=== PATIENT | female | born 1940 | race Caucasian/White ===

== ENCOUNTER 2021-03-05 00:45 | Emergency (ER) | payer MEDICARE, BC ==
[2021-03-05] MEDS ORDERED: Bupivacaine 0.5% 10 ML SDV INJECT ONE (01:14)
[2021-03-05] MEDS ORDERED: Diphtheria,Pertussis(Acell),Tetanus Vaccine 0.5 ML Syringe IM ONE ×2 (01:14→02:11)
[2021-03-05] MEDS ORDERED: Lidocaine 1% with EPINEPHrine 1:100,000 20 ML MDV INJECT ONE (01:14)
--- NOTE | 2021-03-05 01:19 | EDM.PDOC ---
ED HPI GENERAL MEDICAL PROBLEM - General Chief Complaint: Laceration Stated Complaint: FALL/ RT HAND LAC Time Seen by Provider: 03/05/21 01:06 Source of Information: Reports: Patient, Family (Sister) History Limitations: Reports: No Limitations - History of Present Illness INITIAL COMMENTS - FREE TEXT/NARRATIVE: Ms. Chaudhry is a very pleasant 80-year-old woman who is now brought to the ED by her sister, after suffering a laceration to the dorsal aspect of her right thumb. She states that she was chasing a cat outside, and likely tripped on some steps on her deck, around 2100 last night, 03/04/2021. She denies any other injuries. The patient does not recall when her last tetanus vaccination was. At triage, the patient's initial BP was found to be mildly elevated at 155/99, otherwise, she was hemodynamically stable, afebrile, saturating 96% on room air. Appears to be comfortable, in no acute distress. Prior to last night's fall, the patient denies having a recent fever, chills, sore throat, ear pain, nasal or sinus congestion, cough, dyspnea, chest pain, palpitations, nausea, vomiting, constipation, diarrhea, abdominal pain, urinary symptoms, recent weight gain or weight loss, recent bloody bowel movements or black bowel movements, recent joint aches, headaches, or rashes. I reviewed the PMHx/PSHx/SocHx, which was reviewed with the patient by the RN. The patient does not have a dedicated PCP. She has not received a COVID vaccination, nor an influenza vaccination this season. - Related Data Allergies Allergy/AdvReac Type Severity Reaction Status Date / Time No Known Allergies Allergy Verified 03/05/21 01:02 Home Meds: Home Meds . [No Known Home Meds] 03/05/21 [History] Social & Family History - Tobacco Use Tobacco Use Status *Q: Never Tobacco User - Caffeine Use Caffeine Use: Reports: Coffee - Recreational Drug Use Recreational Drug Use: No ED ROS GENERAL - Review of Systems Review Of Systems: Comprehensive ROS is negative, except as noted in HPI. ED EXAM, SKIN/RASH Exam: See Below Exam Limited By: No Limitations General Appearance: Alert, WD/WN, No Apparent Distress Extremities: Other (There is a stellate laceration to the dorsal aspect of the right thumb, over the first metacarpal. Underlying connective tissue is exposed. The wound is not currently bleeding. No tendon injury. Neurovascular status of the right thumb is intact.) ED SKIN PROCEDURES - Laceration/Wound Repair Right Hand Appearance: Subcutaneous, Stellate, Clean Distal NVT: Neuro & Vascular Intact, No Tendon Injury Anesthetic Type: Local Local Anesthesia - Lidocaine (Xylocaine): 1% with EPI (50:50 mixture) Local Anesthesia - Bupivicaine (Marcaine): 0.5% Plain (50:50 mixture) Local Anesthetic Volume: 2cc Skin Prep: Providone-Iodine (Betadine) Exploration/Debridement/Repair: Wound Explored, In a Bloodless Field, Explored to Base, No Foreign Material Found Closed with: Sutures Lac/Wound length In cm: 5 Suture Size: 3-0 # of Sutures: 10 Suture Type: Nylon (Ethilon), Interrupted, Simple Drain Placement: No Sterile Dressing Applied: Nurse Tetanus Status Addressed: Yes Complications: No Course - Vital Signs Last Recorded V/S: Last Vital Signs Temp 35.8 C L 03/05/21 00:54 Pulse 70 03/05/21 00:54 Resp 20 03/05/21 00:54 BP 155/99 H 03/05/21 00:54 Pulse Ox 96 03/05/21 00:54 - Orders/Labs/Meds Orders: Active Orders 24 hr Category Date Time Status Vaccine to be Administered/Admin Charge [RC] ASDIRECTED Care 03/05/21 01:14 Active Vaccine to be Administered/Admin Charge [RC] ASDIRECTED Care 03/05/21 02:11 Active Diphth,Pertuss(Acell),Tet Vac [Boostrix] Med 03/05/21 02:11 Once 0.5 ml IM .ONCE ONE FLU Vacc [id number](65UP)/MF59C/PF [Fluad Quad 3378-3879 Med 03/05/21 10:00 Once SYRINGE] 60 mcg IM .ONCE ONE Medication Orders Diphtheria/Tetanus/Acell Pertussis (Diphtheria,Pertussis(Acell),Tetanus Vaccine 0.5 Ml Syringe) 0.5 ml IM .ONCE ONE Stop: 03/05/21 02:12 Influenza Virus Vaccine (Flu Vacc We2386(65up)/Mf59c/Pf 60 Mcg/0.5 Ml Syringe) 60 mcg IM .ONCE ONE Stop: 03/05/21 10:01 Meds: Medications Generic Name Dose Route Start Last Admin Trade Name Freq PRN Reason Stop Dose Admin Diphtheria/Tetanus/Acell Pertussis 0.5 ml 03/05/21 02:11 Diphtheria,Pertussis(Acell),Tetanus Vaccine 0.5 Ml Syringe IM 03/05/21 02:12 .ONCE ONE Influenza Virus Vaccine 60 mcg 03/05/21 10:00 Flu Vacc [id number](65up)/Mf59c/Pf 60 Mcg/0.5 Ml Syringe IM 03/05/21 10:01 .ONCE ONE Discontinued Medications Generic Name Dose Route Start Last Admin Trade Name Freq PRN Reason Stop Dose Admin Bupivacaine HCl 10 ml 03/05/21 01:14 Bupivacaine 0.5% 10 Ml Sdv INJECT 03/05/21 01:15 ONETIME ONE Diphtheria/Tetanus/Acell Pertussis 0.5 ml 03/05/21 01:14 03/05/21 02:11 Diphtheria,Pertussis(Acell),Tetanus Vaccine 0.5 Ml Syringe IM 03/05/21 01:15 Not Given .ONCE ONE Influenza Virus Vaccine 1 each 03/05/21 01:14 Pharmacy To Dose - Influenza Vaccine IM 03/05/21 01:15 ONETIME ONE Lidocaine/Epinephrine 20 ml 03/05/21 01:14 Lidocaine 1% With Epinephrine 1:100,000 20 Ml Mdv INJECT 03/05/21 01:15 ONETIME ONE - Re-Assessments/Exams Free Text/Narrative Re-Assessment/Exam: 03/05/21 01:15 The stellate laceration to the dorsal aspect of the patient's right thumb will need to be sutured. I have ordered some bupivacaine and lidocaine with epinephrine. Additionally, the patient has agreed to receive both a tetanus vaccination and an influenza vaccination. 03/05/21 02:05 After the wound was cleaned, I anesthetized it with a 50:50 mixture of bupivacaine 0.5% without epinephrine and lidocaine 1% with epinephrine. The wound was then closed with 10 simple interrupted sutures using 3-0 Ethilon. The patient tolerated the procedure well. Because the patient has very thin skin, I am recommending 10 days before the sutures are removed, on 03/15/2021. Departure - Departure Time of Disposition: 02:06 Disposition: Home, Self-Care 01 Condition: Good Clinical Impression: Laceration of right hand - Discharge Information *PRESCRIPTION DRUG MONITORING PROGRAM REVIEWED*: Not Applicable *COPY OF PRESCRIPTION DRUG MONITORING REPORT IN PATIENT KAYKAY: Not Applicable Instructions: Laceration Care, Adult Referrals: PCP,Not In Area [Primary Care Provider] - Forms: ED Department Discharge Additional Instructions: You were seen in the emergency room after falling and cutting the back of your right thumb. Your wound was closed with 10 sutures in the ER. Keep the wound clean with ordinary soap and water when you bathe. Pat dry, then apply a sterile bandage, daily. You may take [id number] acetaminophen or ibuprofen as needed for discomfort. The sutures should be ready for removal by 03/15/2021. They can be removed at the walk-in clinic, by a nurse at your doctor's office, or in the ER. It is highly unlikely that the wound will become infected, but if there are any concerns, such as significant swelling or redness, drainage, or inordinate pain, please do not hesitate to return to the ER for reevaluation. You received both a tetanus vaccination and influenza vaccination in the ER. Sepsis Event Note (ED) - Evaluation Sepsis Screening Result: No Definite Risk - Focused Exam Vital Signs: Vital Signs Temp Pulse Resp BP Pulse Ox 03/05/21 00:54 35.8 C L 70 20 155/99 H 96 - My Orders Last 24 Hours: My Active Orders 03/05/21 01:14 Vaccine to be Administered/Admin Charge [RC] ASDIRECTED 03/05/21 02:11 Vaccine to be Administered/Admin Charge [RC] ASDIRECTED Diphth,Pertuss(Acell),Tet Vac [Boostrix] 0.5 ml IM .ONCE ONE 03/05/21 10:00 FLU Vacc [id number](65UP)/MF59C/PF [Fluad Quad 3083-7560 SYRINGE] 60 mcg IM .ONCE ONE - Assessment/Plan Last 24 Hours: My Active Orders 03/05/21 01:14 Vaccine to be Administered/Admin Charge [RC] ASDIRECTED 03/05/21 02:11 Vaccine to be Administered/Admin Charge [RC] ASDIRECTED Diphth,Pertuss(Acell),Tet Vac [Boostrix] 0.5 ml IM .ONCE ONE 03/05/21 10:00 FLU Vacc [id number](65UP)/MF59C/PF [Fluad Quad SYRINGE] 60 mcg IM .ONCE ONE
[2021-03-05] MEDS ORDERED: FLU Vacc QS2021(65UP)/MF59C/PF 60 MCG/0.5 ML Syringe IM ONE (10:00)
== END 2021-03-05 02:34 | disposition home or self-care (01) ==
LOC: JD.ED 00:45
DX: S61.411A Laceration without foreign body of right hand, initial encounter (principal); Z23 Encounter for immunization; W01.0XXA Fall on same level from slipping, tripping and stumbling without subsequent striking against object, initial encounter
CPT/HCPCS: 12002; 90471; 90715; 99282; G0008; J3490; 12013; 99283

== ENCOUNTER 2021-03-18 16:24 | Emergency (ER) | payer MEDICARE, BC ==
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
--- NOTE | 2021-03-18 18:08 | CR ---
Chest: Portable view of the chest was obtained. Comparison: No prior chest imaging is available. Heart size and mediastinum are normal. Lungs show minimal atelectasis behind the left heart. Lungs otherwise are clear. Bony structures show nothing acute. Impression: 1. Slight left basilar atelectasis. 2. Nothing acute is otherwise seen on portable chest x-ray. Diagnostic code #2
== END 2021-03-18 18:44 | disposition home or self-care (01) ==
LOC: JD.ED 16:24
DX: T23.232A Burn of second degree of multiple left fingers (nail), not including thumb, initial encounter (principal); T23.231A Burn of second degree of multiple right fingers (nail), not including thumb, initial encounter; T20.16XA Burn of first degree of forehead and cheek, initial encounter; I10 Essential (primary) hypertension; X15.0XXA Contact with hot stove (kitchen), initial encounter
CPT/HCPCS: 16020; 36600; 71045; 71045-26; 82375; 82803; 99284-25

== ENCOUNTER 2023-01-29 09:27 | Emergency (ER) | payer MEDICARE, BC | END 2023-01-29 12:24 | disposition home or self-care (01) | LOC: JD.ED 09:27 | DX: M25.551 Pain in right hip (principal); I10 Essential (primary) hypertension | CPT/HCPCS: 73502-26-RT; 73502-RT; 99283; 99284 ==

== ENCOUNTER 2023-08-14 08:21 | Emergency (ER) | payer MEDICARE, BC ==
[2023-08-14 09:10] LABS: BASOPHILS ABSOLUTE AUTO 0.1 K/mm3 (0.0-0.2); BASOPHILS PERCENT AUTO 1.1 % (0.0-1.0); EOSINOPHILS ABSOLUTE AUTO 0.1 K/mm3 (0.0-0.4); EOSINOPHILS PERCENT AUTO 1.3 % (0.0-6.0); HEMATOCRIT 40.5 % (37.0-47.0); IMMATURE GRAN ABSOLUTE AUTO 0.04 K/mm3 (0.00-0.05); IMMATURE GRAN PERCENT AUTO 0.8 % (0.0-0.4); LYMPHOCYTES ABSOLUTE AUTO 1.4 K/mm3 (1.0-4.8); LYMPHOCYTES PERCENT AUTO 25.6 % (24.0-44.0); MEAN CORPUSCULAR HEMOGLOBIN 29.3 pg (28.0-32.0); MEAN CORPUSCULAR HGB CONC 32.1 g/dl (32.0-36.0); MEAN CORPUSCULAR VOLUME 91.4 fl (83.0-99.0); MEAN PLATELET VOLUME 9.5 fl (9.4-12.3); MONOCYTES ABSOLUTE AUTO 0.3 K/mm3 (0.0-0.8); MONOCYTES PERCENT AUTO 6.3 % (0.0-8.0); NEUTROPHILS ABSOLUTE AUTO 3.4 K/mm3 (1.8-7.7); NEUTROPHILS PERCENT AUTO 64.9 % (41.0-71.0); PLATELET COUNT,PLT 248 K/mm3 (150-400); RED BLOOD CELL COUNT 4.43 M/mm3 (4.10-5.30); WHITE BLOOD CELL COUNT,WBC 5.27 K/mm3 (3.9-11.3)
[2023-08-14 09:30] LABS: A/G RATIO 1.1 (1-2); ALANINE AMINOTRANSFERASE,ALT 45 U/L (14-59); ALBUMIN 3.7 g/dl (3.4-5.0); ALKALINE PHOSPHATASE 67 U/L (46-116); ANION GAP 13.7 (5-15); ASPARTATE AMNIOTRANSFERASE,AST 23 U/L (15-37); BILIRUBIN TOTAL 0.4 mg/dL (0.2-1.0); BLOOD UREA NITROGEN,BUN 13 mg/dL (7-18); BUN/CREATININE RATIO 14.4 (14-18); CALCIUM 8.8 mg/dL (8.5-10.1); CARBON DIOXIDE,CO2 27 mEq/L (21-32); CHLORIDE,CL 103 mEq/L (98-107); CREATININE 0.9 mg/dL (0.55-1.02); ESTIMATED GFR 63 mL/min (>60); GLUCOSE RANDOM 99 mg/dL (70-99); POTASSIUM,K 3.7 mEq/L (3.5-5.1); PROTEIN TOTAL,TP 7.1 g/dl (6.4-8.2); SODIUM,NA 140 mEq/L (136-145)
[2023-08-14] MEDS: traMADol 50 MG Tab PO PRN (23:15)
[2023-08-14] MEDS: QUEtiapine 25 MG Tab PO SCH (23:15)
[2023-08-15] MEDS ORDERED: QUEtiapine 25 MG Tab PO SCH (21:00)
== END 2023-08-15 11:05 | disposition home or self-care (01) ==
LOC: JD.ED 08:21
DX: S42.212A Unspecified displaced fracture of surgical neck of left humerus, initial encounter for closed fracture (principal); I10 Essential (primary) hypertension; Z79.899 Other long term (current) drug therapy; Z86.16 Personal history of COVID-19; W19.XXXA Unspecified fall, initial encounter
CPT/HCPCS: 36415; 70450; 71045; 73030; 73200; 73552; 80053; 85025; 99284; A9270; 99283

== ENCOUNTER 2023-08-15 15:18 | Inpatient (IN) | payer MEDICARE, BC ==
[2023-08-15] MEDS ORDERED: Ondansetron 4 MG Tab.DIS PO PRN (17:11)
[2023-08-15 19:13] LABS: TSH 2.012 uIU/mL (0.358-3.74)
[2023-08-15 19:24] LABS: MAGNESIUM 1.9 mg/dL (1.8-2.4); PHOSPHORUS 3.1 mg/dL (2.6-4.7)
[2023-08-15] MEDS: Zolpidem 5 MG Tab PO PRN (20:58)
[2023-08-15] MEDS: QUEtiapine 25 MG Tab PO SCH (20:58)
[2023-08-15] MEDS: Heparin Sodium 5,000 Units/ML Vial SUBCUT SCH (20:58)
[2023-08-15] MEDS: Ketorolac 30 MG/ML SDV IVPUSH PRN (20:59)
[2023-08-16] MEDS: HYDROmorphone 0.5 MG/0.5 ML Syringe IVPUSH PRN (00:17)
[2023-08-16 00:43] LABS: APPEARANCE,URINE CLEAR (Clear); BILIRUBIN,URINE NEGATIVE (Negative); COLOR,URINE YELLOW (Yellow); GLUCOSE,URINE NEGATIVE (Negative); KETONES,URINE 2+ (Negative); LEUKOCYTE ESTERASE,URINE NEGATIVE (Negative); NITRITE,URINE NEGATIVE (Negative); OCCULT BLOOD,URINE NEGATIVE (Negative); PH,URINE 5.5 (5.0-8.0); PROTEIN,URINE NEGATIVE (Negative); UROBILINOGEN,URINE 0.2 (0.2-1.0)
[2023-08-16 01:04] LABS: BACTERIA,URINE NOT SEEN /hpf (FEW); EPITHELIAL CELLS,URINE 0-5 /hpf (0-5); MUCUS,URINE RARE /hpf (FEW); RBC,URINE NOT SEEN /hpf (0-5); WBC,URINE 0-5 /hpf (0-5)
[2023-08-16] MEDS ORDERED: Potassium Chloride 20 MEQ Tab.ER PO SCH (08:00)
[2023-08-16] MEDS ORDERED: Folic Acid 1 MG Tab PO SCH (08:00)
[2023-08-16] MEDS: Potassium Chloride 20 MEQ Tab.ER PO SCH (08:48)
[2023-08-16] MEDS: Folic Acid 1 MG Tab PO SCH (08:49)
[2023-08-16 09:29] LABS: BASOPHILS ABSOLUTE AUTO 0.1 K/mm3 (0.0-0.2); BASOPHILS PERCENT AUTO 1.2 % (0.0-1.0); EOSINOPHILS ABSOLUTE AUTO 0.1 K/mm3 (0.0-0.4); EOSINOPHILS PERCENT AUTO 2.1 % (0.0-6.0); HEMATOCRIT 33.8 % (37.0-47.0); HEMOGLOBIN 11.2 gm/dl (12.0-16.0); IMMATURE GRAN ABSOLUTE AUTO 0.01 K/mm3 (0.00-0.05); IMMATURE GRAN PERCENT AUTO 0.2 % (0.0-0.4); LYMPHOCYTES PERCENT AUTO 20.8 % (24.0-44.0); MEAN CORPUSCULAR HEMOGLOBIN 29.9 pg (28.0-32.0); MEAN CORPUSCULAR HGB CONC 33.1 g/dl (32.0-36.0); MEAN CORPUSCULAR VOLUME 90.1 fl (83.0-99.0); MEAN PLATELET VOLUME 9.7 fl (9.4-12.3); MONOCYTES ABSOLUTE AUTO 0.4 K/mm3 (0.0-0.8); MONOCYTES PERCENT AUTO 9.1 % (0.0-8.0); NEUTROPHILS ABSOLUTE AUTO 3.2 K/mm3 (1.8-7.7); NEUTROPHILS PERCENT AUTO 66.6 % (41.0-71.0); PLATELET COUNT,PLT 212 K/mm3 (150-400); RED BLOOD CELL COUNT 3.75 M/mm3 (4.10-5.30); WHITE BLOOD CELL COUNT,WBC 4.81 K/mm3 (3.9-11.3)
[2023-08-16] MEDS ORDERED: Sodium Chloride 0.9% 1,000 ML IV SCH (09:30)
[2023-08-16 09:45] LABS: ANION GAP 10.6 (5-15); CALCIUM 8.4 mg/dL (8.5-10.1); EST CRCL DRUG DOSING (CG) 33.71 mL/min; POTASSIUM,K 3.6 mEq/L (3.5-5.1)
[2023-08-16] MEDS: QUEtiapine 25 MG Tab PO SCH (21:43)
[2023-08-17] MEDS: Acetaminophen 325 MG Tab PO PRN (09:05)
[2023-08-17] MEDS: D5 1/2 NS w/ 10 mEq/L KCl 1,000 ML IV SCH (16:10)
[2023-08-17] MEDS: traMADol 50 MG Tab PO PRN (16:11)
[2023-08-18] MEDS: Docusate Sodium 100 MG Cap PO PRN (12:18)
[2023-08-20] MEDS: Morphine 2 MG/ML SYRINGE IVPUSH PRN (17:02)
[2023-08-20] MEDS: LORazepam 0.5 MG Tab PO PRN (18:12)
[2023-08-20] MEDS: oxyCODONE 5 MG Tab PO PRN (19:41)
== END 2023-08-22 12:30 | disposition hospice, home (50) | DRG 563 ==
LOC: JD.ED 15:18 → JD.ICU 17:11
PROVIDERS: ADMIT Internal Medicine; ATTEND Internal Medicine
PROC: 0T9B70Z Drainage of Bladder with Drainage Device, Via Natural or Artificial Opening (ICD-10-PCS; principal; 2023-08-16)
DX: S42.202A Unspecified fracture of upper end of left humerus, initial encounter for closed fracture (principal); M25.551 Pain in right hip; I10 Essential (primary) hypertension; G30.9 Alzheimer's disease, unspecified; F02.C0 Dementia in other diseases classified elsewhere, severe, without behavioral disturbance, psychotic disturbance, mood disturbance, and anxiety; Z51.5 Encounter for palliative care; Z66 Do not resuscitate; R33.9 Retention of urine, unspecified; Z79.899 Other long term (current) drug therapy; Z86.16 Personal history of COVID-19; W19.XXXA Unspecified fall, initial encounter
CPT/HCPCS: 36415; 51702; 51798; 80048; 81001; 83735; 84100; 84443; 85025; 97110-GP; 97161-GP; 97530-GP; 99283; 99285; A9270-GY; J1170; J1644; J1885; J2270; J3480